=== PATIENT | female | born 1950 | race Caucasian/White ===

== ENCOUNTER 2019-12-01 13:38 | Emergency (ER) | payer OTHER ==
--- NOTE | 2019-12-01 13:40 | PDOC ---
History of Present Illness - General Chief Complaint: Injury Stated Complaint: LEFT FOOT PAIN Time Seen by Provider: 12/01/19 13:40 - History of Present Illness Initial Comments: 12/01/19 14:49 69 year old woman who presents with R foot pain after she stepped into a pothole and fell onto her hands and knees last night at 1800. The patient reports that she was able to get up and walk again and normally walks with a cane, but the pain became too severe. She has no other complaints. ROS GENERAL/CONSTITUTIONAL: No fever or chills. No weakness. HEAD, EYES, EARS, NOSE AND THROAT: No change in vision. No ear pain or discharge. No sore throat. CARDIOVASCULAR: No chest pain or shortness of breath RESPIRATORY: No cough, wheezing, or hemoptysis. GASTROINTESTINAL: No nausea, vomiting, diarrhea or constipation. GENITOURINARY: No dysuria, frequency, or change in urination. MUSCULOSKELETAL: + joint or muscle swelling or pain. No neck or back pain. SKIN: No rash NEUROLOGIC: No headache, vertigo, loss of consciousness, or change in strength/sensation. ENDOCRINE: No increased thirst. No abnormal weight change HEMATOLOGIC/LYMPHATIC: No anemia, easy bleeding, or history of blood clots. ALLERGIC/IMMUNOLOGIC: No hives or skin allergy. PE GENERAL: Awake, alert, and fully oriented, in no acute distress HEAD: No signs of trauma, normocephalic, atraumatic EYES: EOMI, sclera anicteric, conjunctiva clear ENT: oropharynx clear without exudates. Moist mucosa NECK: Normal ROM, supple LUNGS: No distress, speaks full sentences, clear to auscultation bilaterally HEART: Regular rate and rhythm, normal S1 and S2, no murmurs, rubs or gallops, peripheral pulses normal and equal bilaterally. ABDOMEN: Soft, nontender No guarding, no rebound. No masses EXTREMITIES : Normal inspection, + mild R foot edema, ttp to dorsum of the foot, NV intact NEUROLOGICAL: Cranial nerves II through XII grossly intact. Normal speech, no focal sensorimotor deficits SKIN: Warm, Dry, normal turgor, no rashes or lesions noted Assessment and Plan 69 year old woman who presents with R foot pain after she stepped into a pothole and fell onto her hands and knees last night at 1800. Consider fx vs dislocation vs sprain - XR - pain control XR without acute fx or subuluxation d.c with ortho f/u and pcp f/u strict return precautions provided Loida Champagne, PGY3 Emergency Medicine Past History - Medical History Allergies/Adverse Reactions: Allergies Allergy/AdvReac Type Severity Reaction Status Date / Time codeine Allergy Intermediate Vomiting Verified 12/01/19 13:39 Penicillins Allergy Rash Verified 12/01/19 13:39 Home Medications: Ambulatory Orders Atorvastatin Ca [Lipitor] 20 mg PO DAILY 12/01/19 Citalopram Hydrobromide [Citalopram HBr] 40 mg PO DAILY 12/01/19 Ibuprofen [Advil -] 600 mg PO ONCE 12/01/19 Meloxicam 15 mg PO DAILY 12/01/19 Rivaroxaban [Xarelto] 20 mg PO DAILY 12/01/19 - Immunization History Immunization Up to Date: Yes - Psycho-Social/Smoking History Smoking History: Never smoked Discharge - Discharge Information Problems reviewed: Yes Clinical Impression/Diagnosis: Foot pain Foot sprain Qualifiers: Encounter type: initial encounter Laterality: right Qualified Code(s): S93.601A - Unspecified sprain of right foot, initial encounter Condition: Stable Disposition: HOME - Follow up/Referral Referrals: Figueroa Nassar MD [Primary Care Provider] - Branden River MD [Staff Physician] - - Patient Discharge Instructions Additional Instructions: You were seen in the ER for complaints of R foot pain. Your x-ray does not show a fracture. You should rest, ice and elevate your foot. You have a referral to Orthopedics which you should follow up within 1 week. Return to the ER if you have worsening pain, swelling, numbness or tingling or any other concerning symptoms. - Post Discharge Activity
[2019-12-01 13:46] VITALS: BP 107/70; PULSE 73; TEMP 98.2; BMI 27.1
[2019-12-01] MEDS ORDERED: ACETAMINOPHEN 500 MG TABLET (FP) PO ONE (13:55)
[2019-12-01] MEDS ORDERED: ACETAMINOPHEN 500 MG TABLET (FP) ONE (14:10)
--- NOTE | 2019-12-01 14:13 | PDOC ---
Attending Attestation - Resident Resident Name: Loida Champagne - ED Attending Attestation I have performed the following: I have examined & evaluated the patient, The case was reviewed & discussed with the resident, I agree w/resident's findings & plan, Exceptions are as noted - HPI HPI: 12/01/19 14:11 69 yo F p/w R foot pain after twisting ankle while walking last night. States she fell at the time but denies any other injuries. Has been ambulatory since but reports pain with ambulation. Denies any other injuries or complaints. - Physicial Exam PE: 12/01/19 14:16 General: well appearing HEENT: NCAT Extremities: warma nd well perfused, +DP pulses, minimal swelling R medial mall, dorsiflexion/plantarflexion 5/5 b/l, sensation intact to light touch, mild midfoot ttp and tenderness at base of 5th metatarsal, no ankle ttp - Medical Decision Making 12/01/19 14:12 69 yo F with possible fx vs. sprain. Plan: -xray R foot/ankle -pain control as needed -given midfoot tenderness and tendernes at base of 5th metatarsal if xray negative for acute fx will place in posterior splint and d/c with crutches and ortho f/u This clinical encounter is taking place during a federal and state health care emergency attributable to the novel Beth Virus pandemic. The [employer]ified [employer] of the Department of Health and Human Services has declared, pursuant to the Public Health Service Act 319F-3 (42 U.S[place]C. 247d-6d), that a covered persons activities related to medical countermeasures against COVID-19 will be immune from liability under Federal and State law. Discharge - Discharge Information Problems reviewed: Yes Clinical Impression/Diagnosis: Foot sprain Qualifiers: Encounter type: initial encounter Laterality: right Qualified Code(s): S93.601A - Unspecified sprain of right foot, initial encounter Condition: Stable - Follow up/Referral Referrals: Figueroa Nassar MD [Primary Care Provider] - - Patient Discharge Instructions - Post Discharge Activity
== END 2019-12-01 15:00 | disposition home or self-care (01) ==
LOC: FER 13:38
DX: S93.601A Unspecified sprain of right foot, initial encounter (principal)
CPT/HCPCS: 73610-TC-RT-FY; 73630-TC-RT-FY; 99283-25

== ENCOUNTER 2022-08-13 11:49 | Emergency (ER) | payer OTHER ==
[2022-08-13 12:12] VITALS: BP 133/85; PULSE 70; RESP 16; TEMP 98.7; BMI 27.8
== END 2022-08-13 12:59 | disposition home or self-care (01) ==
LOC: FER 11:49
DX: R59.0 Localized enlarged lymph nodes (principal); R09.81 Nasal congestion; R05.1 Acute cough; Z20.822 Contact with and (suspected) exposure to COVID-19
CPT/HCPCS: 0241U-QW; 99283-25

== ENCOUNTER 2022-08-23 11:48 | Emergency (ER) | payer OTHER ==
[2022-08-23] MEDS ORDERED: ACETAMINOPHEN 500 MG TABLET (FP) PO ONE (12:42)
[2022-08-23] MEDS ORDERED: ACETAMINOPHEN 500 MG TABLET (FP) ONE ×2 (12:54)
[2022-08-23 13:01] VITALS: BP 114/73; PULSE 54; RESP 20; TEMP 97.7; BMI 27.8
== END 2022-08-23 14:51 | disposition home or self-care (01) ==
LOC: FER 11:48
DX: R05.9 Cough, unspecified (principal); J06.9 Acute upper respiratory infection, unspecified; Z20.822 Contact with and (suspected) exposure to COVID-19
CPT/HCPCS: 0241U-QW; 71046-TC-FY; 99284-25

== ENCOUNTER 2023-07-03 07:50 | Day surgery (SDC) | payer OTHER ==
[2023-06-29 16:26] VITALS: BMI 27.8
[2023-07-03] MEDS ORDERED: TROPICAMIDE 1% OPHTH SOLN 15 ML BOTTLE ONE (08:06)
[2023-07-03] MEDS ORDERED: PHENYLEPHRINE 2.5% OPTHALMIC DROP 2ML BOTTLE ONE (08:06)
[2023-07-03] MEDS ORDERED: OFLOXACIN 0.3% OPHTHALMIC SOLUTION 5 ML BOTTLE ONE (08:06)
[2023-07-03] MEDS ORDERED: KETOROLAC TROMETHAMINE 0.5% EYE DROP 1 DROP DROPS ONE (08:07)
[2023-07-03] MEDS ORDERED: CYCLOPENTOLATE HCL 1% OPHTH SOLN 2 ML BOTTLE ONE (08:07)
[2023-07-03] MEDS: TROPICAMIDE 1% OPHTH SOLN 15 ML BOTTLE OS SCH (08:15)
[2023-07-03] MEDS: OFLOXACIN 0.3% OPHTHALMIC SOLUTION 5 ML BOTTLE OS SCH (08:15)
[2023-07-03] MEDS: CYCLOPENTOLATE HCL 1% OPHTH SOLN 2 ML BOTTLE OS SCH (08:15)
[2023-07-03] MEDS: PHENYLEPHRINE 2.5% OPHTH SOLN 15 ML BOTTLE OS SCH (08:15)
[2023-07-03] MEDS: KETOROLAC TROMETHAMINE 0.5% EYE DROP 1 DROP DROPS OS SCH (08:15)
[2023-07-03] MEDS ORDERED: BACITRACIN/POLYMYXIN OPH OINT 3.5 GM TUBE ONE (09:22)
[2023-07-03] MEDS ORDERED: POVIDONE-IODINE 5% OPHTHALMIC PREP 30 ML SOLUTION ONE (09:22)
[2023-07-03] MEDS ORDERED: EPI-SHUGARCAINE (EPINEPHRINE 0.025% & LIDOCAINE-PF 0.75%) 4ML ONE (09:22)
[2023-07-03] MEDS ORDERED: BETAXOLOL HCL 0.25% OPHTHALMIC 10 ML DROPSBTL ONE (09:22)
[2023-07-03] MEDS ORDERED: TETRACAINE 0.5% OPHTH SOLN 2 ML BOTTLE ONE (09:22)
[2023-07-03] MEDS ORDERED: NEO/POLYMYX B SULF/DEXAMETH OPHTHALMIC 5ML BOTTLE ONE (09:22)
[2023-07-03] MEDS ORDERED: MIDAZOLAM HCL 2 MG/2 ML SINGLE DOSE VIAL ONE (09:34)
[2023-07-03] MEDS ORDERED: ACETAMINOPHEN 325 MG TABLET (FP) PO PRN (10:22)
[2023-07-03 10:39] VITALS: TEMP 97.8
[2023-07-03 10:52] VITALS: BP 112/74; PULSE 58; RESP 19
== END 2023-07-03 11:05 | disposition home or self-care (01) ==
LOC: FASU 07:50
PROVIDERS: ATTEND Ophthalmology
PROC: 08RK3JZ Replacement of Left Lens with Synthetic Substitute, Percutaneous Approach (ICD-10-PCS; principal; 2023-07-03 09:52)
DX: H25.89 Other age-related cataract (principal)
CPT/HCPCS: 66984; V2632

== ENCOUNTER 2023-07-17 07:54 | Day surgery (SDC) | payer OTHER ==
[2023-07-06 16:06] VITALS: BMI 27.8
[2023-07-17] MEDS ORDERED: OFLOXACIN 0.3% OPHTHALMIC SOLUTION 5 ML BOTTLE ONE (08:05)
[2023-07-17] MEDS ORDERED: TROPICAMIDE 1% OPHTH SOLN 15 ML BOTTLE ONE (08:05)
[2023-07-17] MEDS ORDERED: PHENYLEPHRINE 2.5% OPTHALMIC DROP 2ML BOTTLE ONE (08:05)
[2023-07-17] MEDS ORDERED: KETOROLAC TROMETHAMINE 0.5% EYE DROP 1 DROP DROPS ONE (08:06)
[2023-07-17] MEDS ORDERED: CYCLOPENTOLATE HCL 1% OPHTH SOLN 2 ML BOTTLE ONE (08:06)
[2023-07-17] MEDS: OFLOXACIN 0.3% OPHTHALMIC SOLUTION 5 ML BOTTLE OD SCH (08:30)
[2023-07-17] MEDS: CYCLOPENTOLATE HCL 1% OPHTH SOLN 2 ML BOTTLE OD SCH (08:30)
[2023-07-17] MEDS: KETOROLAC TROMETHAMINE 0.5% EYE DROP 1 DROP DROPS OD SCH (08:30)
[2023-07-17] MEDS: TROPICAMIDE 1% OPHTH SOLN 15 ML BOTTLE OD SCH (08:30)
[2023-07-17] MEDS: PHENYLEPHRINE 2.5% OPHTH SOLN 15 ML BOTTLE OD SCH (08:30)
[2023-07-17] MEDS ORDERED: POVIDONE-IODINE 5% OPHTHALMIC PREP 30 ML SOLUTION ONE (08:34)
[2023-07-17] MEDS ORDERED: BETAXOLOL HCL 0.25% OPHTHALMIC 10 ML DROPSBTL ONE (08:34)
[2023-07-17] MEDS ORDERED: TETRACAINE 0.5% OPHTH SOLN 2 ML BOTTLE ONE (08:34)
[2023-07-17] MEDS ORDERED: EPI-SHUGARCAINE (EPINEPHRINE 0.025% & LIDOCAINE-PF 0.75%) 4ML ONE (08:34)
[2023-07-17] MEDS ORDERED: BSS (NA/CA/MG/K) BALANCED SALT SOLUTION OPHTH SOLN 15 ML BOTTLE ONE (08:34)
[2023-07-17] MEDS ORDERED: BACITRACIN/POLYMYXIN OPH OINT 3.5 GM TUBE ONE (08:34)
[2023-07-17] MEDS ORDERED: NEO/POLYMYX B SULF/DEXAMETH OPHTHALMIC 5ML BOTTLE ONE (08:34)
[2023-07-17 08:39] VITALS: RESP 16
[2023-07-17] MEDS ORDERED: ACETAMINOPHEN INJECTION 100 ML IVPB ONE (10:01)
[2023-07-17] MEDS ORDERED: MIDAZOLAM HCL 2 MG/2 ML SINGLE DOSE VIAL ONE (10:02)
[2023-07-17] MEDS ORDERED: ACETAMINOPHEN 325 MG TABLET (FP) PO PRN (10:58)
[2023-07-17] MEDS: ONDANSETRON 4 MG/2 ML VIAL ONE (11:17)
[2023-07-17 12:13] VITALS: TEMP 96.6
[2023-07-17 12:45] VITALS: BP 114/54; PULSE 84
== END 2023-07-17 12:10 | disposition home or self-care (01) ==
LOC: FASU 07:54
PROVIDERS: ATTEND Ophthalmology
PROC: 08RJ3JZ Replacement of Right Lens with Synthetic Substitute, Percutaneous Approach (ICD-10-PCS; principal; 2023-07-17 10:28)
DX: H25.89 Other age-related cataract (principal)
CPT/HCPCS: 66984; V2632; J0131